=== PATIENT | female | born 1950 | race Caucasian/White ===

== ENCOUNTER → 2016-12-25 | Outpatient (CLI) | payer BC ==
[~2016-12-25] MED LIST: AMIT10TA6 PO; ASPI81TA28 PO; BCTCR EXT; CLOP1TAB5 PO; FINA5TAB PO; GLIM2TAB2 PO; INSUINJ14 SC; INSUINJ4 SC; ISOS30TA3 PO; LISI-729 PO; LMC25 PO; LTRSCR45 EXT; METO50TA16 PO; MULT-614 PO; NICO7DIS10 TD; NITR100C6 PO; NRN600 PO; NTRGSL/4 SL; NYSS/ PO; OXYC-106 PO; PROSCAR 5 MG PO; SIMV40TA2 PO; XRL10 PO
[2016-12-25 19:31] LABS: HEMATOCRIT 45.6 % (37-47); MEAN CELL VOLUME 94.8 fL (80-100); MEAN CORPUSCULAR HEMOGLOBIN 32.2 pg (25-34); MEAN PLATELET VOLUME 10.3 fL (7.4-10.4); PLATELET COUNT 212 K/uL (130-400); RED BLOOD COUNT 4.81 M/uL (4.2-5.4); WHITE BLOOD COUNT 10.01 K/uL (4.8-10.8)
[2016-12-25 19:51] LABS: BASO % 0.6 %; BASO ABS # 0.06 K/uL (0-0.2); COMPLETE YES; IG% 0.4 %; LYMPH % 24.6 %; LYMPH ABS # 2.46 K/uL (1.2-3.4); MONO % 6.2 %; NEUT % 65.2 %
[2016-12-25 20:21] LABS: ALT/SGPT 36 U/L (12-78); BLOOD UREA NITROGEN 12 mg/dl (7-18); BUN/CREATININE RATIO 14.5 (10-20); CALCIUM 8.6 mg/dl (8.5-10.1); CARBON DIOXIDE 24 mmol/L (21-32); CHLORIDE 109 mmol/L (98-107); CREATININE 0.83 mg/dl (0.60-1.20); GLUCOSE 146 mg/dl (70-99); HDL CHOLESTEROL 39 mg/dl; POTASSIUM 4.1 mmol/L (3.5-5.1); SODIUM 142 mmol/L (136-145); TRIGLYCERIDES 212 mg/dl (0-150); VERY LOW DENSITY LIPOPROT CALC 42 mg/dl
[2016-12-25 20:24] LABS: ALKALINE PHOSPHATASE 58 U/L (45-117); AST/SGOT 24 U/L (15-37); CHOLESTEROL 131 mg/dl (0-200); CHOLESTEROL/HDL RATIO 3.4; LDL CHOLESTEROL CALCULATED 50 mg/dl
[2016-12-26 07:22] LABS: ESTIMATED AVERAGE GLUCOSE 180 mg/dl; HA1C FLAG Normal (Normal)
--- NOTE | 2016-12-30 13:32 | CODING QUERY MEDICAL NECESSITY ---
SUPPORTING DIAGNOSIS NEEDED A supporting diagnosis is required for the test/procedure performed on this patient in order for us to be reimbursed by the patient's insurance. Please provide a supporting diagnosis for the following test/procedure listed below next to the test name along with your signature. *If there is no additional diagnosis for this patient that would support the following test/procedure please document that below next to the test/procedure. Test(s)/Procedure(s) that require a supporting diagnosis: DOS 12/25 * Vitamin D DIAGNOSIS: Provider Signature: Date: Thank you Deb Morocho [facility] Information Management Once completed, please kindly fax back to [phone] For questions please call [phone]
== END | disposition home or self-care (01) ==
LOC: C.LAB 18:44
PROVIDERS: ATTEND Internal Medicine
DX: E11.9 Type 2 diabetes mellitus without complications (principal); I25.10 Atherosclerotic heart disease of native coronary artery without angina pectoris

== ENCOUNTER → 2017-05-14 | Outpatient (CLI) | payer BC ==
--- NOTE | 2017-05-14 11:17 | DIAGNOSTIC IMAGING REPORT ---
RIGHT FOOT MIN 3 VIEWS CLINICAL HISTORY: PAIN OF RIGHT GREAT TOE Right pain COMPARISON: None. DISCUSSION: Moderate degenerative change first metatarsophalangeal joint. Mild bunion deformity distal first metatarsal. Mild hallux valgus configuration. All remaining osseous structures are unremarkable. There is no evidence for soft tissue swelling. IMPRESSION: Moderate degenerative change first metatarsophalangeal joint. No acute bony abnormality. The above report was generated using voice recognition software. It may contain grammatical, syntax or spelling errors. Electronically signed by: John Ward M.D. 05/14/2017 11:15 AM Dictated Date/Time: 05/14/2017 11:14 AM
== END | disposition home or self-care (01) ==
LOC: C.RDSM 10:48
PROVIDERS: ATTEND Podiatrist
DX: M79.674 Pain in right toe(s) (principal)

== ENCOUNTER → 2017-11-07 | Outpatient (CLI) | payer BC ==
[2017-11-07 18:27] LABS: ALBUMIN 3.8 gm/dl (3.4-5.0); ALT/SGPT 32 U/L (12-78); AST/SGOT 21 U/L (15-37); BLOOD UREA NITROGEN 13 mg/dl (7-18); CALCIUM 9.8 mg/dl (8.5-10.1); CARBON DIOXIDE 25 mmol/L (21-32); CREATININE 0.85 mg/dl (0.60-1.20); GLUCOSE 169 mg/dl (70-99); POTASSIUM 4.1 mmol/L (3.5-5.1); SODIUM 139 mmol/L (136-145); TOTAL PROTEIN 7.7 gm/dl (6.4-8.2)
[2017-11-07 18:28] LABS: ALKALINE PHOSPHATASE 63 U/L (45-117)
[2017-11-08 07:24] LABS: HEMOGLOBIN A1C 8.6 % (4.5-5.6)
== END | disposition home or self-care (01) ==
LOC: C.LAB 17:26
PROVIDERS: ATTEND Internal Medicine
DX: E11.9 Type 2 diabetes mellitus without complications (principal); E55.9 Vitamin D deficiency, unspecified; I48.2 Chronic atrial fibrillation

== ENCOUNTER → 2017-12-03 | Outpatient (CLI) | payer BC ==
--- NOTE | 2017-12-03 16:50 | DIAGNOSTIC IMAGING REPORT ---
CHEST 2 VIEWS ROUTINE CLINICAL HISTORY: Acute respiratory infection dyspnea COMPARISON STUDY: 12/13/2012 FINDINGS: Moderate stable cardia megaly. Lungs are clear. Diaphragms smooth. IMPRESSION: Moderate stable cardiomegaly. Otherwise negative study. The above report was generated using voice recognition software. It may contain grammatical, syntax or spelling errors. Electronically signed by: John Ward M.D. 12/03/2017 4:49 PM Dictated Date/Time: 12/03/2017 4:48 PM
== END | disposition home or self-care (01) ==
LOC: C.RAD1850 16:02
PROVIDERS: ATTEND Internal Medicine
DX: J22 Unspecified acute lower respiratory infection (principal); I51.7 Cardiomegaly